=== PATIENT | male | born 1950 | race Caucasian/White ===

== ENCOUNTER 2025-04-20 09:40 | Emergency (ER) | payer MEDICARE, OTHER, SELFPAY ==
[2025-04-20 10:15] VITALS: BP 100/78
--- NOTE | 2025-04-20 11:29 | ED.GENMED ---
History of Present Illness
General
Chief Complaint: Weakness
Time Seen by Provider: 04/20/25 10:58
History of Present Illness
History of Present Illness:
The patient is a 74-year-old male presenting with severe aches and pains throughout the entire body. The symptoms began on Friday night with mild discomfort, which progressively worsened on Friday, and had become intolerable by Friday afternoon.
The patient reports that he was unable to dress himself this morning without assistance due to the pain. He denies any cough, congestion, runny nose, sore throat, chest pain, or difficulty breathing. He had recently restarted Ozempic two weeks ago
for diabetes management after a few years hiatus. The patient visited urgent care this morning, where they conducted COVID and flu tests, both of which were negative. The urgent care advised him to contact his family doctor, who subsequently advised
him to visit the emergency department. The patient expresses significant fatigue and mentions a normal headache. No joint swelling. No fevers or chills. Multiple family members have been sick recently with pneumonia.
Past History
Past History
ED Past Medical History: Hypercholesterolemia, NIDDM and Other (Gout, Parkinson's)
ED Past Surgical History: Appendectomy
Social History
Tobacco: Non-smoker
Alcohol: None
Personal:
Living: with family
Phy Exam
Physical Exam
Physical Exam:
GENERAL: in no acute distress
HEENT: normocephalic, extraocular movements intact, moist oral mucosa
NECK: normal inspection, full range of motion of the neck
RESPIRATORY: no respiratory distress, clear to auscultation bilaterally
CARDIOVASCULAR: regular rate and rhythm
ABDOMEN/: soft, non-distended, non-tender to palpation, no rebound or guarding
EXTREMITIES: non-tender, no edema/swelling
NEUROLOGIC: awake and alert, moves all extremities
SKIN: warm
Course
Orders/Labs/Results
Orders:
Orders
04/20/25 10:19
Electrocardiogram (*1) Urgent
Reason for Study: Fatigue / Weakness
EKG- Treatment ONCE
04/20/25 11:08
Complete Blood Count/With Diff Urgent
Comprehensive Metabolic Panel Urgent
Creatine Phosphokinase Urgent
Comment: ADD ON
Lyme Progressive Urgent
Comment: ADD ON
Urinalysis Reflex To Culture Urgent
Date Specimen was Collected: 04/20/25
Time Specimen was Collected: 11:03
Urine Microscopic Reflex Cult Urgent
04/20/25 12:19
Ibuprofen [Motrin] 600 mg PO NOW STA
04/20/25 13:04
Add On- LAB Urgent
Tests Added?: CK
04/20/25 13:05
Add On- LAB Urgent
Tests Added?: lyme
Abnormal Lab Results
04/20/25
11:08
RBC 4.62 L 10^6/uL
(4.70-6.10)
MCH 31.4 H pg
(27.0-31.0)
Absolute Lymphs (auto) 0.5 L 10^3/uL
(1.2-3.4)
Absolute Monos (auto) 0.8 H 10^3/uL
(0.1-0.6)
Neutrophils % 79.1 H %
(42.2-75.2)
Lymphocytes % 7.9 L %
(20.5-51.1)
Monocytes % 11.7 H %
(1.7-9.3)
Glucose 146 H mg/dl
(70-99)
Total Bilirubin 1.4 H mg/dl
(0.2-1.3)
Urine Bacteria (Reflex) Few A
(Negative)
Urine Albumin (Reflex) 2+ A
(Neg - Trace)
04/20/25 11:08
04/20/25 11:08
Vital Signs
Initial and Last Documented VS:
Initial Vital Signs
Temp Pulse Resp BP Pulse Ox
98.7 F 91 18 100/78 96
04/20/25 10:15 04/20/25 10:15 04/20/25 10:15 04/20/25 10:15 04/20/25 10:15
Last Documented Vital Signs
Temp Pulse Resp BP Pulse Ox
98.7 F 90 20 110/72 99
04/20/25 10:15 04/20/25 13:40 04/20/25 13:40 04/20/25 13:40 04/20/25 13:40
MDM/Problems Addressed
Differential Diagnosis Includes:
73-year-old man presenting to the emergency department with bodyaches and a headache. Vitals unremarkable exam is reassuring. Differential consists of viral infection versus Ozempic side effect versus metabolic derangement vs rhabdo. No red flags
in the headache to suggest subarachnoid hemorrhage or meningitis temporal arteritis. Will check blood work and urinalysis. Will give ibuprofen for the headache.
*Critical Care Note
Total Time (30-74mins, 75-104mins- exclusive of procedures): Not Applicable
Update Note
Update Note:
CPK normal. Urinalysis negative. Patient is ambulatory. Will discharge at this time. Lyme test pending at time of discharge
ED Attending Note
-
Portions of this chart may have been created with voice recognition software.� Occasional wrong word or��sound alike� substitutions may have occurred due to the inherent limitations of voice recognition software.
Discharge Plan
Departure
Patient Disposition: Home (Routine Discharge)
Date of Disposition: 04/20/25
Time of Disposition: 14:36
Patient with high blood pressure during this ER visit?: No
Discharge Problem:
Body aches
Prescriptions:
No Action
gabapentin [Neurontin] 600 MG tablet
1,200 mg PO HS
ascorbic acid (vitamin C) [Vitamin C] 500 MG tablet
1,000 mg PO DAILY
rosuvastatin 20 MG tablet
20 mg PO QPM
ergocalciferol (vitamin D2) [Vitamin D2] 1,250 mcg (50,000 unit) Capsule
1,250 mcg PO SUWE
donepezil 10 mg Tablet
10 mg PO HS
Patient Comments:
10/05/22--patient stopped 5 mg daily
allopurinol 100 mg Tablet
100 mg PO DAILY
Ozempic 0.25 mg or 0.5 mg(2 mg/1.5 mL) Pen Injector
0.25 mg SC CARLIN
Advil PM Liqui-Gels 200-25 mg Capsule
1 cap PO HS PRN (Reason: sleep)
acetaminophen 325 mg Tablet
650 mg PO Q6HPRN PRN (Reason: mild pain/ fever>100.5F) Qty: 60 0RF
amoxicillin-pot clavulanate 875-125 mg Tablet
1 tab PO Q12 Qty: 14 0RF
therapeutic multivitamin Tablet
1 tab PO DAILY Qty: 0 0RF
white petrolatum [Hydrophor] 42 % Ointment
1 applic topical DAILY Qty: 1 0RF
Referrals:
Sim Gomes DO [Family Provider, Family Practice]
Activity Restrictions/Additional Instructions:
You were seen in the Emergency Department today for . Body aches while you were here we performed blood work, which was reassuring. Please make sure you stay well-hydrated
We would like for you to follow up with your primary care physician for further evaluation. If you experience fever, worsening of your symptoms, or develop any other new or concerning symptoms, please return to the Emergency Department immediately.
Please see the attached sheet for additional information.
Interventions
Interventions:
*Risk Screen - Suicide Last Done: 04/20/25 10:15
*General Assessment Last Done: 04/20/25 10:15
*Neglect/Abuse Screening Last Done: 04/20/25 10:15
*ED- Fall Risk Assessment Last Done: 04/20/25 11:04
ED- Cardiac Assessment Last Done: 04/20/25 11:04
ED- Neurological Assessment Last Done: 04/20/25 11:04
ED- Pulmonary Assessment Last Done: 04/20/25 11:04
Discharge Date and Time
Print Language: BHUTANESE
[2025-04-20 11:47] LABS: % Basophils 0.5 % (0-2); % Eosinophils 0.5 % (0-6); % Immature Granulocytes 0.3 % (0-0.5); % Lymphocytes 7.9 % (20.5-51.1); % Monocytes 11.7 % (1.7-9.3); % Neutrophils 79.1 % (42.2-75.2); Absolute Lymphocytes 0.5 10^3/uL (1.2-3.4); Absolute Monocytes 0.8 10^3/uL (0.1-0.6); Absolute Neutrophils 5.1 10^3/uL (1.4-6.5); Hematocrit 42.4 % (39.0-52.0); Hemoglobin 14.5 g/dL (13.0-18.0); Mean Corp Hgb Conc. 34.2 g/dL (33.0-37.0); Mean Corpuscular Hgb 31.4 pg (27.0-31.0); Mean Corpuscular Volume 91.8 fL (80.0-94.0); Mean Platelet Volume 9.6 fL (7.4-10.4); Nucleated Red Blood Cells % 0 % (-); Platelet Count 167 10^3/uL (130-400); Red Blood Cell Count 4.62 10^6/uL (4.70-6.10); Red Cell Dist. Width 12.5 % (11.5-14.5); White Blood Cell Count 6.5 10^3/uL (4.8-10.8)
[2025-04-20 12:17] LABS: ALT (SGPT) 36 U/L (0-50); AST (SGOT) 34 U/L (17-59); Albumin 4.5 g/dl (3.5-5.0); Alkaline Phosphatase 74 U/L (38-126); Blood Urea Nitrogen 17 mg/dl (9-20); Calcium 9.6 mg/dl (8.4-10.2); Carbon Dioxide 25 mmol/L (22-30); Chloride 105 mmol/L (98-107); Glucose 146 mg/dl (70-99); Potassium 4.6 mmol/L (3.5-5.1); Sodium 136 mmol/L (135-145); Total Bilirubin 1.4 mg/dl (0.2-1.3); Total Protein 7.1 g/dl (6.3-8.2); eGFR > 60.00
[2025-04-20] MEDS: MOTRIN 600 MG PO (12:50)
[2025-04-20 13:40] VITALS: BP 110/72
[2025-04-20 14:14] LABS: Creatine Phosphokinase 105 U/L (55-170)
[2025-04-20 14:20] LABS: Urine Albumin 2+ (Neg - Trace); Urine Bilirubin Negative (Negative); Urine Character Clear (Clear); Urine Color Yellow; Urine Glucose Negative (Negative); Urine Ketone Negative (Negative); Urine Leukocyte Negative (Negative); Urine Nitrite Negative (Negative); Urine Occult Blood Negative (Negative); Urine Specific Gravity 1.025 (<1.030); Urine Urobilinogen Negative (Neg - 1+)
[2025-04-20 14:26] LABS: Urine Bacteria Few (Negative); Urine Mucus Few; Urine Red Blood Cell 0-2 /HPF (0-2); Urine Squamous Cell 0-2 /LPF (Few); Urine White Cell 0-2 /HPF (0-5)
[2025-04-21 13:43] LABS: Lyme Antibody Screen, EIA Negative (Negative)
== END 2025-04-20 16:09 | disposition home or self-care (01) ==
LOC: EMR 09:40
PROVIDERS: EMERGENCY PHYSICIAN Student in an Organized Health Care Education/Training Program; FAMILY PHYSICIAN Family Medicine
DX: M79.18 Myalgia, other site (principal); R53.1 Weakness; E11.9 Type 2 diabetes mellitus without complications; E78.00 Pure hypercholesterolemia, unspecified; G20.A1 Parkinson's disease without dyskinesia, without mention of fluctuations; Z90.49 Acquired absence of other specified parts of digestive tract
CPT/HCPCS: 99284; 80053; 81003; 81015; 82550; 85025; 86618; 93005